=== PATIENT | female | born 1965 | race Caucasian/White ===

== ENCOUNTER 2019-11-14 18:54 | Inpatient (IN) ==
[2019-11-14] MEDS ORDERED: Ondansetron 4 mg VIAL 2 MG/ML 2 ml VIAL IV ONE (18:57)
[2019-11-14] MEDS ORDERED: Morphine 4 MG/ML VIAL (1 ml) IV ONE (18:57)
[2019-11-14 22:21] LABS: ABS Basophils 0.1 10^3/ul (0-0.2); ABS Lymphocytes 0.5 10^3/ul (1.0-4.8); ABS Neutrophils 14.8 10^3/ul (1.5-7.7); Hematocrit 34 % (35-47); Hemoglobin 10.9 g/dL (12.0-16.0); Lymphocyte % 3.2 %; Mean Corpuscular HGB Conc 33 g/dL (31-36); Mean Corpuscular Hemoglobin 26 pg (27-31); Mean Corpuscular Volume 79 fL (80-97); Mean Platelet Volume 9.6 fL (7.4-10.4); Platelet Count 184 10^3/uL (150-450); Red Blood Count 4.25 10^6 /uL (3.70-4.87); Red Cell Distribution Width 17 % (10-15); White Blood Count 16.4 10^3/uL (3.5-10.8)
[2019-11-14 22:41] LABS: BUN/Creatinine Ratio 18.8 (8-20); Calcium 8.1 mg/dL (8.6-10.3); EGFR African American 117.5 (>60); EGFR Non-African American 97.1 (>60); Potassium 4.3 mmol/L (3.5-5.0)
[2019-11-14 22:44] LABS: Activated Partial Thrombo Time 24.8 seconds (26.0-38.0); INR 1.07 (0.82-1.09)
[2019-11-14] MEDS: Heparin 5000 UNITS/ML 1 mL VIAL SUBCUT SCH (23:29)
[2019-11-14] MEDS: NS 0.9% 1000 ml BAG 1,000 ML IV SCH (23:29)
[2019-11-14] MEDS: Ondansetron 4 mg VIAL 2 MG/ML 2 ml VIAL IV PRN (23:29)
[2019-11-15 04:52] LABS: Urine Appearance Clear; Urine Bilirubin Negative (Negative); Urine Blood Negative (Negative); Urine Color Yellow; Urine Glucose Negative (Negative); Urine Ketones Negative (Negative); Urine Nitrite Negative (Negative); Urine Protein Negative (Negative); Urine Urobilinogen Negative (Negative)
[2019-11-15] MEDS: Heparin 5000 UNITS/ML 1 mL VIAL SUBCUT SCH ×2 (06:30→15:36)
[2019-11-15 07:16] LABS: ABS Lymphocytes 1.1 10^3/ul (1.0-4.8); ABS Monocytes 1.1 10^3/ul (0-0.8); ABS Neutrophils 7.9 10^3/ul (1.5-7.7); Eosinophil % 0.1 %; Hematocrit 28 % (35-47); Hemoglobin 9.7 g/dL (12.0-16.0); Lymphocyte % 11.2 %; Mean Corpuscular HGB Conc 34 g/dL (31-36); Mean Corpuscular Hemoglobin 27 pg (27-31); Mean Corpuscular Volume 79 fL (80-97); Platelet Count 166 10^3/uL (150-450); Red Blood Count 3.61 10^6 /uL (3.70-4.87); Red Cell Distribution Width 17 % (10-15); White Blood Count 10.2 10^3/uL (3.5-10.8)
[2019-11-15 07:38] LABS: CO2 Carbon Dioxide 20 mmol/L (22-32); Calcium 7.5 mg/dL (8.6-10.3); Chloride 109 mmol/L (101-111); Sodium 137 mmol/L (135-145)
[2019-11-15 07:43] LABS: BUN/Creatinine Ratio 18.3 (8-20); Blood Urea Nitrogen 11 mg/dL (6-24); EGFR African American 126.5 (>60); EGFR Non-African American 104.6 (>60); Glucose 105 mg/dL (70-100)
[2019-11-15] MEDS: Ondansetron 4 mg VIAL 2 MG/ML 2 ml VIAL IV PRN (07:52)
[2019-11-15 08:14] LABS: Anion Gap 8 mmol/L (2-11); Potassium 4.2 mmol/L (3.5-5.0)
[2019-11-15] MEDS ORDERED: Polyethylene Glycol 3350 17 GM PACKET PO PRN (11:21)
[2019-11-15] MEDS ORDERED: Magnesium Hydroxide LIQ 30 ML UDC PO PRN (11:21)
[2019-11-15] MEDS ORDERED: Senna TAB 8.6 mg TAB PO PRN (11:21)
[2019-11-15] MEDS: NS 0.9% 1000 ml BAG 1,000 ML IV SCH ×2 (13:02→23:48)
[2019-11-15 13:15] LABS: % Iron Saturation 6 % (15-55); Iron 24 ug/dL (50-212); Total Iron Binding Capacity 370 mcg/dL (250-450); Transferrin 264 mg/dL (203-362); Unsaturated Iron Binding < 355 ug/dL
[2019-11-15 13:37] LABS: Ferritin 8.8 ng/mL (11-307)
[2019-11-15 13:41] LABS: Vitamin B12 486 pg/mL (180-914)
[2019-11-15 13:44] LABS: Folate 17.04 ng/mL (>3.99)
[2019-11-15 14:42] LABS: Albumin 3.3 g/dL (3.2-5.2)
[2019-11-15 14:48] LABS: ALT 13 U/L (7-52); Albumin/Globulin Ratio 1.5 (1-3); Alkaline Phosphatase 57 U/L (34-104); Globulin 2.2 g/dL (2-4); Total Protein 5.5 g/dL (6.4-8.9)
[2019-11-15] MEDS ORDERED: Midazolam 5 mg/5 ml VIAL 1 mg/ml 5 ml VIAL (5 mg) ONE (16:00)
[2019-11-15] MEDS ORDERED: Dexmedetomidine 200 mcg/2 ml 2 ml VIAL (200 mcg) ONE (16:00)
[2019-11-15] MEDS ORDERED: fentaNYL 100 mcg/2 ml 50 MCG/ML VIAL ONE ×2 (16:00→22:22)
[2019-11-15] MEDS ORDERED: ROPIVACAINE 5 MG/ML 30 ML BTL (0.5%) ONE (16:04)
[2019-11-15] MEDS ORDERED: Lidocaine 2% PF 10 ML AMP ONE (16:04)
[2019-11-15] MEDS ORDERED: ceFAZolin 2 GM PREMIX 2 GM/50 ML BAG ONE (17:13)
[2019-11-15] MEDS ORDERED: Bupivacaine 0.5% SDV PF 30ML VIAL ONE (17:29)
[2019-11-15] MEDS ORDERED: Lidocaine 2% PF 5 ML VIAL ONE (17:51)
[2019-11-15] MEDS ORDERED: Propofol 10 MG/ML 20 ML BTL ONE (17:51)
[2019-11-15] MEDS ORDERED: Phenylephrine 40 mcg/mL 10mL (400mcg) SYRINGE ONE (18:03)
[2019-11-15] MEDS ORDERED: EPHEDrine (Pressors) 50 MG/ML VIAL ONE (18:11)
[2019-11-15] MEDS ORDERED: Phenylephrine IV 10 MG/ML 1 ml VIAL ONE (18:19)
[2019-11-15] MEDS ORDERED: fentaNYL 100 mcg/2 ml 50 MCG/ML VIAL IV PRN (21:19)
[2019-11-15] MEDS ORDERED: HYDROcodone/ACETAMIN 5/325 mg TAB PO PRN (21:19)
[2019-11-15] MEDS ORDERED: Naloxone 0.4 mg VIAL 0.4 mg/ml 1 ml VIAL IV PRN (21:19)
[2019-11-15] MEDS ORDERED: oxyCODONE/Acetamin 5/325 mg TAB PO PRN (21:19)
[2019-11-15] MEDS ORDERED: Ondansetron 4 mg VIAL 2 MG/ML 2 ml VIAL IV PRN (21:19)
[2019-11-15 22:05] LABS: Hematocrit 27 % (35-47); Hemoglobin 8.9 g/dL (12.0-16.0)
[2019-11-15] MEDS ORDERED: oxyCODONE/Acetamin 5/325 mg TAB ONE (22:22)
[2019-11-15] MEDS ORDERED: Metoprolol Tartrate 5 mg VIAL 5 ml VIAL (1 mg/ml) IV ONE (23:02)
[2019-11-15] MEDS ORDERED: Labetalol IV 5 MG/ML 20 ml VIAL ONE (23:02)
[2019-11-16] MEDS: Ondansetron 4 mg VIAL 2 MG/ML 2 ml VIAL IV PRN (00:10)
[2019-11-16] MEDS: ceFAZolin 1 GM ADVAN 1 GM in NS 0.9% 50 ML 50 ML IVPB SCH ×3 (00:51→15:56)
[2019-11-16] MEDS ORDERED: ceFAZolin 1 GM ADVAN 1 GM in NS 0.9% 50 ML 50 ML IVPB SCH (02:00)
[2019-11-16 06:04] LABS: ABS Lymphocytes 0.8 10^3/ul (1.0-4.8); ABS Monocytes 1.4 10^3/ul (0-0.8); Eosinophil % 0.1 %; Hematocrit 21 % (35-47); Hemoglobin 6.8 g/dL (12.0-16.0); Lymphocyte % 8.9 %; Mean Corpuscular HGB Conc 33 g/dL (31-36); Mean Corpuscular Hemoglobin 26 pg (27-31); Mean Corpuscular Volume 79 fL (80-97); Mean Platelet Volume 9.3 fL (7.4-10.4); Platelet Count 123 10^3/uL (150-450); Red Blood Count 2.59 10^6 /uL (3.70-4.87); Red Cell Distribution Width 17 % (10-15); White Blood Count 9.2 10^3/uL (3.5-10.8)
[2019-11-16 06:34] LABS: BUN/Creatinine Ratio 16.4 (8-20); Calcium 7.3 mg/dL (8.6-10.3); EGFR African American 124.1 (>60); EGFR Non-African American 102.6 (>60); Potassium 3.9 mmol/L (3.5-5.0)
[2019-11-16] MEDS ORDERED: oxyCODONE/Acetamin 5/325 mg TAB PO PRN (10:15)
[2019-11-16] MEDS: oxyCODONE/Acetamin 5/325 mg TAB PO PRN ×3 (10:26→23:13)
[2019-11-16] MEDS: Enoxaparin 40 MG/0.4 ML SYR SUBCUT SCH (12:41)
[2019-11-16] MEDS: NS 0.9% 1000 ml BAG 1,000 ML IV SCH (15:57)
[2019-11-16] MEDS ORDERED: Influenza VAC *QUAD* 2020-21* 0.5 ML SYRINGE IM ONE (18:00)
[2019-11-17 05:44] LABS: ABS Eosinophils 0.1 10^3/ul (0-0.6); ABS Monocytes 1.5 10^3/ul (0-0.8); Eosinophil % 0.8 %; Hematocrit 19 % (35-47); Hemoglobin 6.7 g/dL (12.0-16.0); Lymphocyte % 11.4 %; Mean Corpuscular HGB Conc 34 g/dL (31-36); Mean Corpuscular Hemoglobin 28 pg (27-31); Mean Corpuscular Volume 81 fL (80-97); Mean Platelet Volume 9.3 fL (7.4-10.4); Platelet Count 111 10^3/uL (150-450); Red Blood Count 2.39 10^6 /uL (3.70-4.87); Red Cell Distribution Width 17 % (10-15); White Blood Count 8.5 10^3/uL (3.5-10.8)
[2019-11-17 06:06] LABS: Albumin 2.7 g/dL (3.2-5.2); Albumin/Globulin Ratio 1.4 (1-3); BUN/Creatinine Ratio 16.1 (8-20); Calcium 7.5 mg/dL (8.6-10.3); EGFR Non-African American 113.2 (>60); Globulin 1.9 g/dL (2-4); Potassium 3.7 mmol/L (3.5-5.0); Total Bilirubin 0.4 mg/dL (0.2-1.0); Total Protein 4.6 g/dL (6.4-8.9)
[2019-11-17] MEDS: oxyCODONE/Acetamin 5/325 mg TAB PO PRN ×3 (06:40→20:19)
[2019-11-17] MEDS: Enoxaparin 40 MG/0.4 ML SYR SUBCUT SCH (12:11)
[2019-11-17] MEDS ORDERED: Iron Sucrose 200 MG in NS 0.9% 100 ml BAG 100 ML IVPB ONE (12:30)
[2019-11-17 12:59] LABS: TSH Ultra Thyroid Stim Horm 5.08 mcIU/mL (0.34-5.60)
[2019-11-18] MEDS: oxyCODONE/Acetamin 5/325 mg TAB PO PRN ×4 (04:00→21:48)
[2019-11-18 05:48] LABS: Albumin 2.6 g/dL (3.2-5.2); Albumin/Globulin Ratio 1.2 (1-3); BUN/Creatinine Ratio 16.7 (8-20); Calcium 7.5 mg/dL (8.6-10.3); EGFR African American 163.7 (>60); EGFR Non-African American 135.3 (>60); Globulin 2.2 g/dL (2-4); Potassium 3.7 mmol/L (3.5-5.0); Total Bilirubin 0.4 mg/dL (0.2-1.0); Total Protein 4.8 g/dL (6.4-8.9)
[2019-11-18 08:41] LABS: ABS Eosinophils 0.1 10^3/ul (0-0.6); ABS Lymphocytes 1.3 10^3/ul (1.0-4.8); ABS Monocytes 1.1 10^3/ul (0-0.8); ABS Neutrophils 6.3 10^3/ul (1.5-7.7); Eosinophil % 1.3 %; Hematocrit 27 % (35-47); Hemoglobin 9.2 g/dL (12.0-16.0); Lymphocyte % 14.6 %; Mean Corpuscular HGB Conc 34 g/dL (31-36); Mean Corpuscular Hemoglobin 28 pg (27-31); Mean Corpuscular Volume 83 fL (80-97); Mean Platelet Volume 9.1 fL (7.4-10.4); Platelet Count 165 10^3/uL (150-450); Red Blood Count 3.24 10^6 /uL (3.70-4.87); Red Cell Distribution Width 17 % (10-15); White Blood Count 8.8 10^3/uL (3.5-10.8)
[2019-11-18] MEDS: ceFAZolin 1 GM ADVAN 1 GM in NS 0.9% 50 ML 50 ML IVPB SCH ×2 (12:15→19:51)
[2019-11-18] MEDS: Enoxaparin 40 MG/0.4 ML SYR SUBCUT SCH (12:15)
[2019-11-19] MEDS: oxyCODONE/Acetamin 5/325 mg TAB PO PRN ×3 (02:35→12:52)
[2019-11-19] MEDS: ceFAZolin 1 GM ADVAN 1 GM in NS 0.9% 50 ML 50 ML IVPB SCH (03:03)
[2019-11-19 06:01] LABS: ABS Eosinophils 0.1 10^3/ul (0-0.6); ABS Monocytes 0.9 10^3/ul (0-0.8); ABS Neutrophils 4.5 10^3/ul (1.5-7.7); Eosinophil % 1.9 %; Hematocrit 25 % (35-47); Hemoglobin 8.5 g/dL (12.0-16.0); Lymphocyte % 14.9 %; Mean Corpuscular HGB Conc 34 g/dL (31-36); Mean Corpuscular Hemoglobin 29 pg (27-31); Mean Corpuscular Volume 85 fL (80-97); Mean Platelet Volume 8.9 fL (7.4-10.4); Platelet Count 161 10^3/uL (150-450); Red Blood Count 2.93 10^6 /uL (3.70-4.87); Red Cell Distribution Width 17 % (10-15); White Blood Count 6.5 10^3/uL (3.5-10.8)
[2019-11-19] MEDS: Enoxaparin 40 MG/0.4 ML SYR SUBCUT SCH (11:51)
[2019-11-19 12:18] VITALS: BP 116/63
== END 2019-11-19 15:50 | DRG 308 ==
LOC: ED 18:54 → SSU 21:02
PROVIDERS: ADMIT Student in an Organized Health Care Education/Training Program; ATTEND Internal Medicine

== ENCOUNTER 2019-11-19 15:14 | Inpatient (IN) ==
[2019-11-19] MEDS ORDERED: Magnesium Hydroxide LIQ 30 ML UDC PO PRN (17:15)
[2019-11-19] MEDS ORDERED: Senna TAB 8.6 mg TAB PO PRN (17:15)
[2019-11-19] MEDS ORDERED: Polyethylene Glycol 3350 17 GM PACKET PO PRN (17:42)
[2019-11-19] MEDS ORDERED: oxyCODONE/Acetamin 5/325 mg TAB PO PRN (17:42)
[2019-11-19] MEDS: oxyCODONE/Acetamin 5/325 mg TAB PO PRN (19:49)
[2019-11-20] MEDS: oxyCODONE/Acetamin 5/325 mg TAB PO PRN ×5 (01:15→23:24)
[2019-11-20 07:50] LABS: ABS Eosinophils 0.1 10^3/ul (0-0.6); ABS Monocytes 0.8 10^3/ul (0-0.8); ABS Neutrophils 4.1 10^3/ul (1.5-7.7); Eosinophil % 2.3 %; Hematocrit 25 % (35-47); Hemoglobin 8.4 g/dL (12.0-16.0); Lymphocyte % 16.3 %; Mean Corpuscular HGB Conc 33 g/dL (31-36); Mean Corpuscular Hemoglobin 28 pg (27-31); Mean Corpuscular Volume 85 fL (80-97); Mean Platelet Volume 8.3 fL (7.4-10.4); Platelet Count 203 10^3/uL (150-450); Red Blood Count 2.96 10^6 /uL (3.70-4.87); Red Cell Distribution Width 17 % (10-15); White Blood Count 6.1 10^3/uL (3.5-10.8)
[2019-11-20 08:09] LABS: Albumin 2.7 g/dL (3.2-5.2); Albumin/Globulin Ratio 1.1 (1-3); BUN/Creatinine Ratio 18.4 (8-20); Calcium 7.8 mg/dL (8.6-10.3); EGFR African American 159.8 (>60); EGFR Non-African American 132.1 (>60); Globulin 2.4 g/dL (2-4); Total Bilirubin 0.6 mg/dL (0.2-1.0); Total Protein 5.1 g/dL (6.4-8.9)
[2019-11-20] MEDS: Enoxaparin 40 MG/0.4 ML SYR SUBCUT SCH (12:17)
[2019-11-21] MEDS: oxyCODONE/Acetamin 5/325 mg TAB PO PRN ×4 (05:28→19:53)
[2019-11-21] MEDS: Enoxaparin 40 MG/0.4 ML SYR SUBCUT SCH (12:35)
[2019-11-22] MEDS: oxyCODONE/Acetamin 5/325 mg TAB PO PRN ×4 (03:13→19:09)
[2019-11-22] MEDS: Enoxaparin 40 MG/0.4 ML SYR SUBCUT SCH (12:14)
[2019-11-23] MEDS: oxyCODONE/Acetamin 5/325 mg TAB PO PRN ×4 (02:21→21:42)
[2019-11-23 05:01] LABS: ABS Eosinophils 0.2 10^3/ul (0-0.6); ABS Lymphocytes 0.8 10^3/ul (1.0-4.8); ABS Monocytes 0.8 10^3/ul (0-0.8); ABS Neutrophils 4.5 10^3/ul (1.5-7.7); Eosinophil % 2.6 %; Hematocrit 27 % (35-47); Mean Corpuscular HGB Conc 34 g/dL (31-36); Mean Corpuscular Hemoglobin 29 pg (27-31); Mean Corpuscular Volume 85 fL (80-97); Nucleated Red Blood Cells % 0.1; Platelet Count 274 10^3/uL (150-450); Red Blood Count 3.14 10^6 /uL (3.70-4.87); Red Cell Distribution Width 18 % (10-15); White Blood Count 6.3 10^3/uL (3.5-10.8)
[2019-11-23] MEDS: Multivitamins/Minerals TAB PO SCH (08:32)
[2019-11-23] MEDS: Enoxaparin 40 MG/0.4 ML SYR SUBCUT SCH (12:57)
[2019-11-24] MEDS: oxyCODONE/Acetamin 5/325 mg TAB PO PRN ×4 (03:29→19:25)
[2019-11-24] MEDS: Multivitamins/Minerals TAB PO SCH (08:31)
[2019-11-24] MEDS: Enoxaparin 40 MG/0.4 ML SYR SUBCUT SCH (12:23)
[2019-11-25] MEDS: oxyCODONE/Acetamin 5/325 mg TAB PO PRN ×4 (01:21→18:19)
[2019-11-25] MEDS: Multivitamins/Minerals TAB PO SCH (08:02)
[2019-11-25] MEDS: Enoxaparin 40 MG/0.4 ML SYR SUBCUT SCH (12:00)
[2019-11-26] MEDS: oxyCODONE/Acetamin 5/325 mg TAB PO PRN ×3 (01:40→13:29)
[2019-11-26] MEDS: Multivitamins/Minerals TAB PO SCH (08:59)
[2019-11-26] MEDS: Enoxaparin 40 MG/0.4 ML SYR SUBCUT SCH (14:02)
[2019-11-27] MEDS: oxyCODONE/Acetamin 5/325 mg TAB PO PRN ×3 (00:09→17:50)
[2019-11-27 08:10] LABS: ABS Eosinophils 0.1 10^3/ul (0-0.6); ABS Monocytes 0.6 10^3/ul (0-0.8); ABS Neutrophils 3.4 10^3/ul (1.5-7.7); Eosinophil % 1.8 %; Hematocrit 32 % (35-47); Hemoglobin 10.6 g/dL (12.0-16.0); Lymphocyte % 18.8 %; Mean Corpuscular HGB Conc 33 g/dL (31-36); Mean Corpuscular Hemoglobin 29 pg (27-31); Mean Corpuscular Volume 87 fL (80-97); Mean Platelet Volume 8.3 fL (7.4-10.4); Platelet Count 341 10^3/uL (150-450); Red Blood Count 3.69 10^6 /uL (3.70-4.87); Red Cell Distribution Width 19 % (10-15); White Blood Count 5.1 10^3/uL (3.5-10.8)
[2019-11-27 08:24] LABS: Albumin 3.5 g/dL (3.2-5.2); Albumin/Globulin Ratio 1.3 (1-3); BUN/Creatinine Ratio 18.2 (8-20); Calcium 8.8 mg/dL (8.6-10.3); EGFR African American 139.9 (>60); EGFR Non-African American 115.6 (>60); Globulin 2.7 g/dL (2-4); Total Bilirubin 0.6 mg/dL (0.2-1.0); Total Protein 6.2 g/dL (6.4-8.9)
[2019-11-27] MEDS: Multivitamins/Minerals TAB PO SCH (09:16)
[2019-11-27] MEDS: Enoxaparin 40 MG/0.4 ML SYR SUBCUT SCH (12:42)
[2019-11-28] MEDS: oxyCODONE/Acetamin 5/325 mg TAB PO PRN ×4 (02:57→20:46)
[2019-11-28] MEDS: Multivitamins/Minerals TAB PO SCH (09:17)
[2019-11-28] MEDS: Enoxaparin 40 MG/0.4 ML SYR SUBCUT SCH (12:29)
[2019-11-29] MEDS: oxyCODONE/Acetamin 5/325 mg TAB PO PRN ×3 (03:21→14:13)
[2019-11-29 05:25] VITALS: BP 121/72
[2019-11-29] MEDS: Multivitamins/Minerals TAB PO SCH (08:05)
[2019-11-29] MEDS: Enoxaparin 40 MG/0.4 ML SYR SUBCUT SCH (12:02)
== END 2019-11-29 15:10 | disposition home health service (06) | DRG 860 ==
LOC: PMRU 17:03 → MERGE 17:03 → PMRU 11-26 17:06
PROVIDERS: ADMIT Physical Medicine & Rehabilitation; ATTEND Physical Medicine & Rehabilitation